=== PATIENT | female | born 1980 | race Caucasian/White ===

== ENCOUNTER 2024-09-19 13:09 | Emergency (ER) | payer BC ==
[2024-09-19] MEDS: Acetaminophen 500 MG Tab PO ONE (13:41)
== END 2024-09-19 14:28 | disposition home or self-care (01) ==
LOC: JP.ED 13:09
DX: S06.0X0A Concussion without loss of consciousness, initial encounter (principal); S01.01XA Laceration without foreign body of scalp, initial encounter; W00.0XXA Fall on same level due to ice and snow, initial encounter
CPT/HCPCS: 99283; A9270